=== PATIENT | male | born 1955 | race African-American/Black ===

== ENCOUNTER → 2018-04-03 | Outpatient (CLI) | payer OTHER | END | disposition home or self-care (01) | LOC: RAH 13:46 | PROVIDERS: ATTEND Internal Medicine | DX: S83.241A Other tear of medial meniscus, current injury, right knee, initial encounter (principal); M25.461 Effusion, right knee; M17.11 Unilateral primary osteoarthritis, right knee; X58.XXXA Exposure to other specified factors, initial encounter; Y93.89 Activity, other specified; Y92.89 Other specified places as the place of occurrence of the external cause; Y99.8 Other external cause status | CPT/HCPCS: 73560; 73721 ==